=== PATIENT | male | born 1950 | race Caucasian/White ===

== ENCOUNTER → 2020-10-03 | Outpatient (CLI) | payer MEDICARE, OTHER ==
[2020-10-03 12:21] VITALS: BP 141/98; PULSE 62; RESP 18; TEMP 97.6
--- NOTE | 2020-10-03 12:53 | P.PAINCN ---
History of Present Illness - Reason for Consult Consult date: 10/03/20 - History of Present Illness This is an initial consultation visit for this 70 years old male with a chronic history of severe neck pain and headache started more than 15 years ago, he used to work as a bicycle mechanic and he used to do a lot of neck movement, his neck pain and headache associated with numbness and tingling sensation radiated to the top of the head, behind the ears bilaterally, he denies any motor or sensory de ficits he denies any change in bowel movement or urination he denies any change in her vision, patient was treated previously with the occipital nerve block a different pain clinic and had a good result Past Medical History Past Medical History: Cancer, Deep Vein Thrombosis (DVT), Hearing Disorder / Deafness, Hypertension, Musculoskeletal Disorder, Osteoarthritis (OA), Prostate Disorder, Skin Disorder Additional Past Medical History / Comment(s): OCCIPITAL NERVE PAIN. MIGRAINES. ROSACEA. Gout, states weight loss r/t Keto diet, hearing loss rt ear History of Any Multi-Drug Resistant Organisms: None Reported Past Surgical History: Appendectomy, Hernia Repair, Tonsillectomy Additional Past Surgical History / Comment(s): SKIN CANCER REMOVED RIGHT NECK. RIGHT MASTOIDECTOMY Past Anesthesia/Blood Transfusion Reactions: No Reported Reaction Past Psychological History: Depression Smoking Status: Former smoker Past Alcohol Use History: None Reported Additional Past Alcohol Use History / Comment(s): quit smoking 1979 Past Drug Use History: None Reported - Past Family History Father Family Medical History: Cancer, Renal Disease Medications and Allergies Home Medications Medication Instructions Recorded Confirmed Type Tamsulosin HCl [Flomax] 0.4 mg PO DAILY 09/22/17 10/03/20 History lisinopriL [Zestril] 10 mg PO DAILY 09/22/17 10/03/20 History Allopurinol [Zyloprim] 100 mg PO DAILY 09/29/20 10/03/20 History Lysine 500 mg PO DAILY 09/29/20 10/03/20 History Magnesium 400 mg PO DAILY 09/29/20 10/03/20 History [place]-3 Fatty Acids [[place]-3] 1,000 mg PO DAILY 09/29/20 10/03/20 History Allergies Allergy/AdvReac Type Severity Reaction Status Date / Time Iodinated Contrast Media Allergy Nausea & Verified 09/29/20 14:53 [Iodinated Contrast Media - Vomiting IV Dye] Physical Exam Vitals: Vital Signs Temp Pulse Resp BP Pulse Ox 10/03/20 12:15 97.6 F 62 18 141/98 96 Physical Examinations : -Constitutiona : Cooperative , not in acute distress . -HEENT : nech : supple , no Lymphadenopathy , normal t hyroid size . : eyes : no ptosis , no icterus, no photophobia . - neurologic : Cranial nerve II to XII intact , no focal neurological deffecit . -psychatric : alert , oriented X 3 , appropriate affect , intact judgment and insight . -Lymphatic : no Lymphadenopathy . - musculoskeltal : Cervical Spine motor stregnth in the deltoid and biceps, normal right side , normal Left side motor stregnth biceps and the wrist extensors normal right side ,normal left side . motor stregnth in the triceps muscle . normal Right side , normal Left side deep tendon reflexes normal at the biceps , normal at Brachioradialis , normal at triceps. cervical facet loading test= Positive Bilaterally Spurling test= positive bilaterally. Neck distraction test= positive b ilaterally. Yohana sign= positive bilaterally. Tenderness over the occipital nerve relocation bilaterally (more prominent on the left side ) Lumber spine moter stegnth lower extremities ,thigh and legs 5/5 Right side , 5/5 Left side . Results Comments: Riya the cervical spine done at [facility] 08/19/2020= C5 6 and C6 7 bulging disc Assessment and Plan Plan: Assessment and plan=1-occipital neuralgia (bilateral ). 2-cervical degenerative disc disease. 3-cervicogenic headache. Patient could benefit from bilateral occipital nerve block Time with Patient: Greater than 30 PQRS Measure Charge Sheet Measure #130: Documentation of Current Meds in Medical Chart: Patient's medications documented in chart Measure #226: Tobacco Use: Screen & Cessation Intervention: Pt not a tobacco user Measure #111: Pneumonia Vaccination: Pneumococcal vaccine NOT administered or previously given Measure #47: Advance Care Plan: Advance care planning discussed & documented, pt chose/unable to give Measure #412: Opioid Treatment Agreement: No documentation of signed opioid treatment agreement Measure #408: Opioid Therapy Follow-up Evaluation: Patient had NO f/u eval minimum every 3 months during opioid therapy Measure #317: Preventitive Care & Scrn High Bld Press & F/U: Pre-hypertensive or hypertensive BP documented, pt will f/u with PCP Measure #128: Body Mass Index (BMI) Screening & Follow-up: BMI documented within normal parameters Measure #131: Pain Assessment & Follow-up: Pain positive & plan documented, Follow-up scheduled Measure #431: Unhealthy Alcohol Use Preventative Care & Scrn: Patient not identified as an unhealthy alcohol user PQRS Narrative: Smoking Status Former smoker Blood Pressure 141/98 Pain Intensity [Neck] 5 Scale Used Numeric (1 - 10) Hx Alcohol Use (MH) No Home Medications: Ambulatory Orders Tamsulosin HCl [Flomax] 0.4 mg PO DAILY 09/22/17 lisinopriL [Zestril] 10 mg PO DAILY 09/22/17 Allopurinol [Zyloprim] 100 mg PO DAILY 09/29/20 Lysine 500 mg PO DAILY 09/29/20 Magnesium 400 mg PO DAILY 09/29/20 Eldon-3 Fatty Acids [Eldon-3] 1,000 mg PO DAILY 09/29/20
== END | disposition home or self-care (01) ==
LOC: PNWHC3 11:58
PROVIDERS: ATTEND Specialist
DX: M50.30 Other cervical disc degeneration, unspecified cervical region (principal); M54.81 Occipital neuralgia; R51.9 Headache, unspecified; M19.90 Unspecified osteoarthritis, unspecified site; I10 Essential (primary) hypertension; H91.91 Unspecified hearing loss, right ear; I82.409 Acute embolism and thrombosis of unspecified deep veins of unspecified lower extremity; Z79.891 Long term (current) use of opiate analgesic; Z79.899 Other long term (current) drug therapy; Z91.041 Radiographic dye allergy status
CPT/HCPCS: 99211

== ENCOUNTER 2020-10-20 06:09 | Day surgery (SDC) | payer MEDICARE, OTHER ==
[2020-10-19 10:49] VITALS: BMI 25.1
[~2020-10-20 06:09] MED LIST: LACTATED RINGERS 1,000 ML IV SCH
[2020-10-20 06:35] VITALS: TEMP 97.8
[2020-10-20] MEDS ORDERED: methylPREDNISolone ACETATE 40 MG/ML 1 ML VIAL ONE (07:00)
[2020-10-20] MEDS ORDERED: ROPIVACAINE 5MG/ML 20ML VIAL ONE (07:00)
--- NOTE | 2020-10-20 07:14 | P.PCN ---
Date of Procedure: 10/20/20 Procedure(s) Performed: Preoperative diagnoses= 1- Greater occipital neuralgia. 2-cervical degenerative disc disease. 3-cervicogenic headache. Postoperative diagnoses= same as preoperative diagnosis. Procedure= Bilateral Greater occipital nerve block Anesthesia= only local infiltration with lidocaine 1% 4 ml Estimated blood loss=none. Procedure indication= the patient had a history of severe chronic neck pain ,and headache, diagnosed with occipital neuralgia exam was positive for severe tenderness over the occipital nerve bilaterally, he will be a good candidate occipital nerve block, patient failed conservative management Procedure description= the patient was seen and identified in the preoperative holding area, risks and benefits and alternative of the procedure and possible complications discussed with the patient, and he agreed with the preceding, patient signed the consent, and vital signs were monitored and were stable throughout the procedure, patient was placed in the sitting position or table and the neck area was prepped and draped with a sterile fashion, vital signs were closely monitored during the procedure, 25-gauge needle advanced 1 inch lateral to the occipital protuberance on the right side, at the location of the right occipital nerve , then after negative aspiration for heme and CSF and there was no paresthesia during the injection, 6 ml of Robivacaine 0.5% and 20 mg of Depo-Medrol injected after negative aspiration, the needle removed, and the entire same procedure was repeated for the left Greater occipital nerve. Patient tolerated the procedure well without any complication, The patient returned to supine position after the back was cleaned and a Band- Aid applied, the patient transported to recovery room in stable condition and he was monitored for 30 minutes before he was discharged home and then patient was reexamined before going home and patient was discharged in stable condition and patient will follow up with the pain clinic in a few weeks.
[2020-10-20 07:20] VITALS: RESP 16
[2020-10-20 07:58] VITALS: BP 140/89; PULSE 60
== END 2020-10-20 08:34 | disposition home or self-care (01) ==
LOC: ORPAIN 06:09
PROVIDERS: ATTEND Specialist
DX: M54.81 Occipital neuralgia (principal); M50.30 Other cervical disc degeneration, unspecified cervical region; Z91.041 Radiographic dye allergy status
CPT/HCPCS: 64405; J1030; J2795

== ENCOUNTER → 2021-11-08 | Outpatient (CLI) | payer MEDICARE, OTHER ==
--- NOTE | 2021-11-08 15:15 | CT ---
EXAMINATION TYPE: CT chest wo con DATE OF EXAM: 11/08/2021 COMPARISON: None HISTORY: Abnormal weight loss, bilateral rib pain, former smoker CT DLP: 381 mGycm. Automated Exposure Control for Dose Reduction was Utilized. TECHNIQUE: CT scan of the thorax is performed without IV contrast. FINDINGS: LUNGS: There is a right lower lobe superior segment measuring 6 mm. 2 mm subpleural left lower lobe s uperior segment nodule. The level of the left lung base is a tree-in-bud pattern is seen with chronic granulomatous disease or pneumonitis. There is subsegmental consolidation in the basis of early infi ltrate.. MEDIASTINUM: Lack of IV contrast is noted to limit evaluation for mediastinal and especially hilar ad enopathy. There are no definitive greater than 1 cm hilar or mediastinal lymph nodes. Heart size is n ormal and there is coronary artery calcification. Atherosclerotic change aorta. OTHER: Hypertrophic and degenerative changes spine.. IMPRESSION: 1. Tree-in-bud pattern with subsegmental consolidation left lung base can be associated with chronic granulomatous disease although an early pneumonitis would be in the differential diagnosis. 2. There is a 6 mm subpleural nodule right lower lobe too small to characterize. Six-month follow-up recommended. 3. Coronary artery atherosclerotic changes.
== END ==
LOC: RADCTMAIN 14:32
PROVIDERS: ATTEND Internal Medicine
DX: D71 Functional disorders of polymorphonuclear neutrophils (principal); J18.9 Pneumonia, unspecified organism; I25.10 Atherosclerotic heart disease of native coronary artery without angina pectoris
CPT/HCPCS: 71250

== ENCOUNTER 2021-12-24 22:21 | Emergency (ER) | payer MEDICARE, OTHER ==
[2021-12-24 22:34] VITALS: BP 159/87; PULSE 53; RESP 20; TEMP 97.8
--- NOTE | 2021-12-25 00:56 | ED ---
General Adult HPI - General Chief complaint: Recheck/Abnormal Lab/Rx Stated complaint: elevated BP + Kidney disease Source: patient Mode of arrival: wheelchair Limitations: no limitations - History of Present Illness Initial comments: 71-year-old male presents emergency Department with reported high blood pressure and low pulse ox. Patient states that he has a history of chronic kidney disease. He is concerned about his elevated blood pressure. States that he was on high blood pressure medication however it kept taking his blood pressure go too low and therefore he was taken off of it. He follows with his strategy execution consultant for blood pressure control. He is also had history of low heart rate. He thought that his heart rate was lower today than what it normally is and th erefore he came into the emergency room. He denies any symptoms. No headaches or visual changes. No chest pain or shortness of breath. No recent illnesses. No medication changes. No other alleviating, precipitating or modifying factors - Related Data Home Medications Medication Instructions Recorded Confirmed Tamsulosin HCl [Flomax] 0.4 mg PO DAILY 09/22/17 10/19/20 lisinopriL [Zestril] 5 mg PO DAILY 09/22/17 10/19/20 Allopurinol [Zyloprim] 100 mg PO DAILY 09/29/20 10/19/20 Lysine 500 mg PO DAILY 09/29/20 10/19/20 Magnesium 400 mg PO DAILY 09/29/20 10/19/20 [place]-3 Fatty Acids [[place]-3] 1,000 mg PO DAILY 09/29/20 10/19/20 Allergies Allergy/AdvReac Type Severity Reaction Status Date / Time Iodinated Contrast Media Allergy Nausea & Verified 12/24/21 22:30 [Iodinated Contrast Media - Vomiting IV Dye] Review of Systems ROS Statement: Those systems with pertinent positive or pertinent negative responses have been documented in the HPI. ROS Other: All systems not noted in ROS Statement are negative. Past Medical History Past Medical History: Cancer, Deep Vein Thrombosis (DVT), Hearing Disorder / Deafness, Hypertension, Musculoskeletal Disorder, Osteoarthritis (OA), Prostate Disorder, Skin Disorder Additional Past Medical History / Comment(s): OCCIPITAL NERVE PAIN. MIGRAINES. ROSACEA. Gout, states weight loss r/t Keto diet, hearing loss rt ear History of Any Multi-Drug Resistant Organisms: None Reported Past Surgical History: Appendectomy, Hernia Repair, Tonsillectomy Additional Past Surgical History / Comment(s): SKIN CANCER REMOVED RIGHT NECK. RIGHT MASTOIDECTOMY Past Anesthesia/Blood Transfusion Reactions: No Reported Reaction Past Psychological History: Depression Smoking Status: Former smoker Past Alcohol Use History: None Reported Past Drug Use History: None Reported - Past Family History Father Family Medical History: Cancer, Renal Disease General Exam Limitations: no limitations General appearance: alert, in no apparent distress Head exam: Present: atraumatic, normocephalic, normal inspection Eye exam: Present: normal appearance, PERRL, EOMI. Absent: scleral icterus, conjunctival injection, periorbital swelling ENT exam: Present: normal exam, mucous membranes moist Neck exam: Present: normal inspection. Absent: tenderness, meningismus, lymphadenopathy Respiratory exam: Present: normal lung sounds bilaterally. Absent: respiratory distress, wheezes, rales, rhonchi, stridor Cardiovascular Exam: Present: regular rate, normal rhythm, normal heart sounds. Absent: systolic murmur, diastolic murmur, rubs, gallop, clicks GI/Abdominal exam: Present: soft, normal bowel sounds. Absent: distended, tenderness, guarding, rebound, rigid Extremities exam: Present: normal inspection, full ROM, normal capillary refill. Absent: tenderness, pedal edema, joint swelling, calf tenderness Back exam: Present: normal inspection Neurological exam: Present: alert, oriented X3, CN II-XII intact Psychiatric exam: Present: normal affect, normal mood Skin exam: Present: warm, dry, intact, normal color. Absent: rash Course Vital Signs 12/24/21 22:30 Temperature 97.8 F Pulse Rate 53 L Respiratory 20 Rate Blood Pressure 159/87 O2 Sat by Pulse 99 Oximetry EKG Findings - EKG Comments: EKG Findings:: EKG inserts and bradycardia with ventricular rate of 44. AR interval 159. QRS 118. QTC of 456. No acute ST segment elevations or depressions concerning for ischemic changes Medical Decision Making - Medical Decision Making Upon arrival patient was placed into room 8. A thorough history and physical exam was performed. I did recommend laboratory studies and imaging. Patient does originally consent to laboratory studies however soon refuses. Patient adamant that he wants to leave as he does have an appointment with his primary care physician in the morning. I did request that the patient stay for an EKG as he does have a low heart rate. Patient did agree to this. EKG demonstrated sinus bradycardia. I did recommend laboratory studies however patient refused. Adamant that he wants to leave at this time. He is informed of the risks of not completing any further treatments. Risks not conclusive but include permanent disability and even . Patient will follow up with his primary care doctor in the morning. Return for any further treatments workup. Patient discharged home in stable condition Disposition Clinical Impression: Sinus bradycardia Disposition: HOME SELF-CARE Condition: Stable Instructions (If sedation given, give patient instructions): Bradycardia (ED) Additional Instructions: Please follow-up with your primary care doctor at your scheduled appointment. Return for any new or worsening symptoms Is patient prescribed a controlled substance at d/c from ED?: No Referrals: Jose Self MD [Primary Care Provider] - 1-2 days Time of Disposition: 00:56
== END 2021-12-25 01:10 | disposition home or self-care (01) ==
LOC: EC 22:21
DX: R00.1 Bradycardia, unspecified (principal); I10 Essential (primary) hypertension; Z91.041 Radiographic dye allergy status; H91.91 Unspecified hearing loss, right ear; Z87.891 Personal history of nicotine dependence
CPT/HCPCS: 93005; 99283

== ENCOUNTER → 2022-06-19 | Outpatient (CLI) | payer MEDICARE, OTHER | END | disposition home or self-care (01) | LOC: LABWHC1 12:05 | PROVIDERS: ATTEND Internal Medicine Nephrology | DX: Z53.9 Procedure and treatment not carried out, unspecified reason (principal) ==

== ENCOUNTER → 2022-06-27 | Outpatient (CLI) | payer MEDICARE, OTHER ==
[2022-06-27 14:43] LABS: Basophils # (A) 0.03 X 10*3/uL (0.00-0.10); Basophils % (A) 0.6 %; Eosinophils # (A) 0.14 X 10*3/uL (0.04-0.35); Eosinophils % (A) 2.7 %; HCT 39.6 % (39.6-50.0); HGB 13.3 g/dL (13.0-17.0); Immature Grans, Automated 0.4 %; Lymphocytes % (A) 21.1 %; MCH 32.4 pg (27.0-32.0); MCHC 33.6 g/dL (32.0-37.0); MCV 96.6 fL (80.0-97.0); Mean Platelet Volume 12.6 fL (9.5-12.2); Monocytes # (A) 0.35 X 10*3/uL (0.20-1.00); Monocytes % (A) 6.7 %; NRBC Per 100 WBC 0 /100 WBCS (0.0-0.0); Neutrophils # (A) 3.58 X 10*3/uL (1.80-7.70); Neutrophils % (A) 68.5 %; Platelet Count 146 X 10*3/uL (140-440); RDW 12.9 % (11.5-14.5); WBC 5.22 X 10*3/uL (4.50-10.00)
[2022-06-27 15:02] LABS: % Iron Saturation 33.9 (15.00-50.00); African American GFR (CKD) 70.6 (60.0-200.0); Albumin 4.2 g/dL (3.8-4.9); Albumin/Globulin Ratio 1.68 (1.60-3.17); Anion Gap 8.9 mmol/L (10.00-18.00); BUN/Creat Ratio 12.58 Ratio (12.00-20.00); Blood Urea Nitrogen 15.1 mg/dL (9.0-27.0); Calcium 9.3 mg/dL (8.7-10.3); Carbon Dioxide 27.1 mmol/L (20.0-27.5); Globulin 2.5 g/dL (1.6-3.3); Non-African American GFR(CKD) 60.9 (60.0-200.0); Potassium 4.8 mmol/L (3.5-5.5); Total Bilirubin 0.5 mg/dL (0.30-1.20); Total Protein 6.7 g/dL (6.2-8.2)
== END | disposition home or self-care (01) ==
LOC: LABWHC1 08:13
PROVIDERS: ATTEND Internal Medicine Critical Care Medicine
DX: R07.89 Other chest pain (principal)
CPT/HCPCS: 36415; 80053; 83540; 83550; 85025

== ENCOUNTER → 2022-10-19 | Outpatient (CLI) | payer MEDICARE, OTHER ==
--- NOTE | 2022-10-19 15:14 | US ---
EXAMINATION TYPE: US kidneys/renal and bladder DATE OF EXAM: 10/19/2022 COMPARISON: CT 2017 CLINICAL HISTORY: N18.31 STAGE 3A KIDNEY DISEASE. JONATHAN EXAM MEASUREMENTS: Right Kidney: 8.8 x 2.9 x 3.5 cm Left Kidney: 11.4 x 4.6 x 4.1 cm Right Kidney: Located within RLQ as visualized on prior CT/ Cyst mid/lateral = 2.6 x 2.4 x 2.8 cm Left Kidney: Probable multiple parapelvic cysts, largest= 2.0 cm Bladder: Irregular bladder wall Bilateral Jets seen: Only left jet visualized Right pelvic kidney redemonstrated with increased cortical echogenicity and a few thin-walled cysts i ncluding central parapelvic thin-walled cysts. Prominent prostate gland. Bladder is distended with mi ld trabeculation. Left kidney shows central simple small parapelvic cysts. Some are elongated. No def initive hydronephrosis. IMPRESSION: No definitive hydronephrosis seen bilaterally. Enlarged prostate consistent with BPH is r edemonstrated.
== END | disposition home or self-care (01) ==
LOC: RADUSWWP 14:23
PROVIDERS: ATTEND Internal Medicine Geriatric Medicine
DX: N18.31 Chronic kidney disease, stage 3a (principal); N40.0 Benign prostatic hyperplasia without lower urinary tract symptoms
CPT/HCPCS: 76770

== ENCOUNTER → 2023-11-25 | Outpatient (CLI) | payer MEDICARE, OTHER ==
--- NOTE | 2023-11-25 11:20 | XR ---
EXAMINATION TYPE: XR chest 2V DATE OF EXAM: 11/25/2023 11:04 AM CLINICAL INDICATION:Male, 73 years old with history of J06.9 URI; [facility] COMPARISON: Chest radiographs from 01/17/2022 TECHNIQUE: XR chest 2V Frontal and lateral views of the chest. FINDINGS: Lungs/Pleura: There is flattening of the diaphragm with increased lucency of the lungs. No evidence o f pneumothorax, pleural effusion or focal consolidation. Pulmonary vascularity: Unremarkable. Heart/mediastinum: Cardiomediastinal silhouette is unremarkable. Musculoskeletal: No acute osseous pathology. IMPRESSION: 1. No acute cardiopulmonary disease process. 2. COPD changes.
== END | disposition home or self-care (01) ==
LOC: RADXRMAIN 10:51
PROVIDERS: ATTEND Internal Medicine Geriatric Medicine
DX: J44.9 Chronic obstructive pulmonary disease, unspecified (principal); J06.9 Acute upper respiratory infection, unspecified
CPT/HCPCS: 71046

== ENCOUNTER 2025-03-03 11:16 | Day surgery (SDC) | payer MEDICARE, OTHER ==
[2025-02-26 11:14] VITALS: BMI 22.0
[~2025-03-03 11:16] MED LIST changes: +LIDOCAINE 1% (10MG/ML) FOR IV START INTRADERMA PRN
[2025-03-03] MEDS: IV FLUID CONTINUATION 1,000 ML IV ONE (11:57)
[2025-03-03 12:00] VITALS: TEMP 97.1
[2025-03-03] MEDS: SODIUM CHLORIDE 0.9% 1,000 ML IV STA (12:12)
[2025-03-03] MEDS ORDERED: PROPOFOL 10 MG/ML 20 ML VIAL IV ONE (12:32)
[2025-03-03] MEDS ORDERED: LIDOCAINE 1% INJ 10MG/ML (20 ML MDV) ONE (12:32)
--- NOTE | 2025-03-03 12:45 | P.PCN ---
Date of Procedure: 03/03/25 Procedure(s) Performed: BRIEF HISTORY: Patient is a 75-year-old, pleasant, white male scheduled for an upper endoscopy as a part of history of longstanding history of GERD. He is presently on Pepcid 40 mg twice daily with some improvement in the symptoms. PROCEDURE PERFORMED: Esophagogastroduodenoscopy with biopsy. PREOPERATIVE DIAGNOSIS: History of GERD and passive regurgitation. IV sedation per anesthesia. PROCEDURE: After informed consent was obtained, the patient was brought into the endoscopy unit. IV sedation was administered by Anesthesia under continuous monitoring. Initially the Olympus GIF-140 video endoscope was inserted into the mouth. Esophagus intubated without any difficulty. It was gradually advanced into the stomach and duodenum and carefully examined. The bulb of the duodenum appeared normal. In the second part of the duodenum there was a flat/broad- based duodenal polyp occupying the third of the circumference measuring at least 3 cm in size and multiple biopsies were done from this area. The scope at this time was withdrawn to the stomach, adequately insufflated with air, and upon careful examination, mucosa of the antrum, body, cardia and the fundus appeared normal. The scope was then withdrawn into the esophagus. Mild hiatal hernia noted. The GE junction was located at 39 cm from the incisors. The esophagus appeared normal. There were no erosions or ulcerations seen and the patient tolerated the procedure well. IMPRESSION: 1. 3 cm flat/broad-based duodenal polyp in the second part of the duodenum extending a third of circumference status post multiple biopsies. 2. Small hiatal hernia but no evidence of esophagitis or esophageal stricture. RECOMMENDATIONS: The findings of this examination were discussed with the patient as well as his family. He was advised to follow-up the biopsy results. Continue with Pepcid 40 mg twice daily and follow antireflux measures. Follow- up in the office in 2 weeks..
[2025-03-03 13:20] VITALS: BP 117/75; PULSE 42; RESP 18
== END 2025-03-03 14:04 | disposition home or self-care (01) ==
LOC: ORWHC2ENDO 11:16
PROVIDERS: ATTEND Internal Medicine Gastroenterology
DX: D13.2 Benign neoplasm of duodenum (principal); K21.9 Gastro-esophageal reflux disease without esophagitis; K44.9 Diaphragmatic hernia without obstruction or gangrene; C44.90 Unspecified malignant neoplasm of skin, unspecified; F32.A Depression, unspecified; L71.9 Rosacea, unspecified; I82.419 Acute embolism and thrombosis of unspecified femoral vein; N42.9 Disorder of prostate, unspecified; N28.9 Disorder of kidney and ureter, unspecified; G43.909 Migraine, unspecified, not intractable, without status migrainosus; H91.90 Unspecified hearing loss, unspecified ear; M54.81 Occipital neuralgia; M19.90 Unspecified osteoarthritis, unspecified site; Z91.041 Radiographic dye allergy status; Z79.899 Other long term (current) drug therapy
CPT/HCPCS: 88305; 43239; J2003; J2704